=== PATIENT | male | born 1950 | race Caucasian/White ===

== ENCOUNTER → 2016-02-22 | Outpatient (CLI) | payer MEDICARE, OTHER ==
[2015-12-28 16:00] VITALS: BP 155/77
[~2016-02-22] MED LIST: ALBU2.5V5 NEB; AMOX1TAB61 PO; CIPR10DR AS; DIVA500T9 PO; FLEC100T PO; FLUT1DIS3 IH; HYDR-971 PO; HYDR25CA75 PO; METO25TA4 PO; ONDA4TAB7 PO; OXYC-323 PO; PROAIR HFA8.5 GM INH; RIVA10TA PO; TERA10CA3 PO; TRAZ100T12 PO
--- NOTE | 2016-02-22 12:05 | KCIC ---
PROCEDURE CT head without contrast. HISTORY Subdural hematoma follow-up. TECHNIQUE CT of the head was performed without intravenous contrast. Comparison is made to the study of 01/25/2016. One or more of the following individualized dose reduction techniques were utilized for this examination: 1. Automated exposure control; 2. Adjustment of the mA and/or kV according to patient size; 3. Use of iterative reconstruction technique. FINDINGS The right frontal subdural hematoma has almost completely resolved. A standard collection measures 4 millimeters or less in thickness. Right frontotemporal craniotomy changes are noted. Mild hypoattenuation within the periventricular white matter indicates mild chronic small-vessel ischemic white matter change. There are chronic lacunar infarcts bilaterally in the basal ganglia. The ventricles are normal in size and position. There is mucosal thickening in the ethmoid air cells. The temporal bones, orbits and calvarium are otherwise unremarkable. IMPRESSION - The right frontal subdural hematoma has almost completely resolved and now measures 4 millimeters or less in thickness. - Bilateral chronic basal ganglia lacunar infarcts. Electronically signed by: Tripp Ledezma (Feb 22, 2016 12:02:23)
== END | disposition home or self-care (01) ==
LOC: KCIC CT 11:26
PROVIDERS: ATTEND Neurological Surgery
DX: I62.00 Nontraumatic subdural hemorrhage, unspecified (principal); M54.16 Radiculopathy, lumbar region; M79.605 Pain in left leg; M79.604 Pain in right leg
CPT/HCPCS: 70450

== ENCOUNTER → 2018-11-13 | Outpatient (CLI) | payer MEDICARE, OTHER ==
[2015-12-28 16:00] VITALS: BP 155/77
[~2018-11-13] MED LIST changes: +ALBU2.5V8 INH; +DIVA-53 PO; -DIVA500T9 PO; +HYDR-3164 PO; -HYDR-971 PO; -OXYC-323 PO; +OXYC1TAB15 PO; -PROAIR HFA8.5 GM INH; +TRAZ-86 PO; -TRAZ100T12 PO
--- NOTE | 2018-11-13 16:36 | KCIC ---
MRI of the brain without contrast 11/13/2018 Clinical History: Tension headaches. History of subdural hematoma. Technique: Unenhanced T1-weighted sagittal and axial, T2-weighted axial and coronal and FLAIR, gradient echo and diffusion-weighted axial images of the brain were obtained. Findings: Comparison is made to the patient's CT scan of the head dated 02/22/2016. Some of the images are degraded by patient motion. The patient is post right frontal craniotomy. There is generalized parenchymal atrophy. Patchy, confluent and multiple small focal areas of increased signal intensity are seen within the periventricular and subcortical white matter of both cerebral hemispheres on the FLAIR and T2-weighted images consistent with areas of small vessel ischemic disease. A 5 mm old area of lacunar infarction is seen involving the medial left aspect of the ana. No acute parenchymal abnormality is seen. No extra-axial fluid collection is seen. There is no MRI evidence of acute ischemia/infarction. Mild to moderate mucosal thickening is seen throughout the paranasal sinuses. There are small bilateral mastoid effusions, right greater than left. Normal flow voids are seen within the major vascular structures surrounding the brain parenchyma. Impression: No acute parenchymal abnormality is seen. Electronically signed by: Gilbert Shields MD (11/13/2018 4:33 PM) [id number]
== END | disposition home or self-care (01) ==
LOC: KCIC MRI 14:40
PROVIDERS: ATTEND Psychiatry & Neurology Neurology with Special Qualifications in Child Neurology
DX: I62.00 Nontraumatic subdural hemorrhage, unspecified (principal); I63.81 Other cerebral infarction due to occlusion or stenosis of small artery
CPT/HCPCS: 70551

== ENCOUNTER 2020-12-20 10:12 | Emergency (ER) | payer BC, MEDICARE ==
[~2020-12-20] VITALS: Ht 180.3 cm; Wt 75.5 kg
[~2020-12-20 10:12] MED LIST changes: +TRAZ-123 PO; -TRAZ-86 PO
--- NOTE | 2020-12-20 10:52 | ED.ADGEN ---
Past Medical History Past Medical History: A-Fib, COPD, Hypertension, Pneumonia Additional Past Medical Histor: ruptured L ear drum Past Surgical History: Other Additional Past Surgical Histo: HERNIA, ANEURYSM Smoking Status: Current Every Day Smoker Alcohol Use: Occasionally Drug Use: None General Adult HPI: HPI: Patient is a 69 year old 69-year-old male coming in complaining of a bump on the right occiput of his head that he noticed about 1.5 days ago. Patient states he is unsure if he might of bumped his head on anything. Patient also complains of numbness to touch on the back of his head and the top of his head but not on the forehead. Patient states that the numbness has been present for 1.5 days as well. Patient is taking a blood thinner. No other complaints. Review of Systems: Review of Systems: All other systems within normal limits except for as noted in the HPI Allergies: Allergies: Allergies Coded Allergies Type Severity Reaction Last Updated Verified No Known Drug Allergies 12/23/15 No Physical Exam: PE: Constitutional: Well developed, well nourished, no acute distress, non-toxic appearance. [] HENT: Normocephalic, small bump on base of right occiput with superficial abrasion. Bilateral external ears normal, nose normal. [] Eyes: PERRLA, conjunctiva normal, no discharge. [] Neck: No rigidity, supple, no stridor. [] Cardiovascular: Regular rate and rhythm, brisk cap refill [] Lungs & Thorax: Non labored symmetric respirations, no tachypnea or respiratory distress [] Abdomen: Soft, nondistended. Skin: Warm, dry, no erythema, no rash. [] Back: Unremarkable Extremities: No deformities, range of motion grossly intact, no lower extremity edema [] Neurologic: Alert and oriented X 3, no focal deficits noted. [] Psychologic: Affect normal, judgement normal, mood normal. [] Current Patient Data: Labs: Laboratory Tests Test 12/20/20 11:58 12/20/20 12:23 Sodium Level 134 mmol/L (136-145) L Potassium Level 4.0 mmol/L (3.5-5.1) Chloride Level 100 mmol/L (98-107) Carbon Dioxide Level 29 mmol/L (21-32) Anion Gap 5 (6-14) L Blood Urea Nitrogen 11 mg/dL (8-26) Creatinine 1.5 mg/dL (0.7-1.3) H Estimated GFR (Cockcroft-Gault) 46.4 BUN/Creatinine Ratio 7 (6-20) Glucose Level 98 mg/dL (70-99) Calcium Level 8.2 mg/dL (8.5-10.1) L Phosphorus Level 2.8 mg/dL (2.6-4.7) Magnesium Level 2.2 mg/dL (1.8-2.4) Total Bilirubin 0.6 mg/dL (0.2-1.0) Aspartate Amino Transferase (AST) 37 U/L (15-37) Alanine Aminotransferase (ALT) 31 U/L (16-63) Alkaline Phosphatase 71 U/L (46-116) Total Protein 6.9 g/dL (6.4-8.2) Albumin 3.4 g/dL (3.4-5.0) Albumin/Globulin Ratio 1.0 (1.0-1.7) White Blood Count 4.1 x10^3/uL (4.0-11.0) Red Blood Count 2.10 x10^6/uL (4.30-5.70) L Hemoglobin 7.6 g/dL (13.0-17.5) L Hematocrit 23.0 % (39.0-53.0) L Mean Corpuscular Volume 109 fL (79-100) H Mean Corpuscular Hemoglobin 36 pg (25-35) H Mean Corpuscular Hemoglobin Concent 33 g/dL (31-37) Red Cell Distribution Width 15.0 % (11.5-14.5) H Platelet Count 227 x10^3/uL (140-400) Neutrophils (%) (Auto) 48 % (31-73) Lymphocytes (%) (Auto) 31 % (24-48) Monocytes (%) (Auto) 18 % (0-9) H Eosinophils (%) (Auto) 2 % (0-3) Basophils (%) (Auto) 1 % (0-3) Neutrophils # (Auto) 2.0 x10^3/uL (1.8-7.7) Lymphocytes # (Auto) 1.3 x10^3/uL (1.0-4.8) Monocytes # (Auto) 0.7 x10^3/uL (0.0-1.1) Eosinophils # (Auto) 0.1 x10^3/uL (0.0-0.7) Basophils # (Auto) 0.0 x10^3/uL (0.0-0.2) Laboratory Tests 12/20/20 12:23 Laboratory Tests 12/20/20 11:58 Vital Signs: Vital Signs Date Time Temp Pulse Resp B/P (MAP) Pulse Ox O2 Delivery O2 Flow Rate FiO2 12/20/20 13:54 75 23 210/98 (135) 94 Room Air 12/20/20 10:19 97.9 97.9 EKG: EKG: [] Heart Score: C/O Chest Pain: No Risk Factors: Risk Factors: DM, Current or recent (<one month) smoker, HTN, HLP, family history of CAD, obesity. Risk Scores: Score 0 - 3: 2.5% MACE over next 6 weeks - Discharge Home Score 4 - 6: 20.3% MACE over next 6 weeks - Admit for Clinical Observation Score 7 - 10: 72.7% MACE over next 6 weeks - Early Invasive Strategies Radiology/Procedures: Radiology/Procedures: [facility] [address] [place] [address] IMAGING REPORT Signed PATIENT: MISTY CARDOSO ACCOUNT: [id number] : 1950 LOCATION: ER AGE: 69 SEX: M EXAM STATUS: REG ER ORD. PHYSICIAN: ROXANNE ARRIOLA MD REASON: bump on back of head numbness PROCEDURE: CT HEAD WO CONTRAST CT HEAD/BRAIN WO History: Reason: bump on back of head numbness / Spl. Instructions: / History: Comparison: MRI November 13, [address] February 22, 2016 Technique: Noncontrast CT imaging was performed of the head. Exposure: One or more of the following individualized dose reduction techniques were utilized for this examination: 1. Automated exposure control 2. Adjustment of the mA and/or kV according to patient size 3. Use of iterative reconstruction technique. Findings: No intracranial hemorrhage. No mass effect. No hydrocephalus. Mild brain parenchymal volume loss. Mild foci of decreased attenuation within hemispheric white matter, most often due to chronic microvascular ischemia. Left parietal cortical and subcortical encephalomalacia related to prior infarct. Chronic appearing bilateral thalamic and left basal ganglia lacunar infarcts, interval development compared to prior. Chronic right basal ganglia lacunar infarct. Imaged orbits are unremarkable. Imaged paranasal sinuses and mastoid air cells are clear. No acute calvarial fracture. Postop changes right parietal craniotomy. Impression: 1. No acute intracranial abnormality. 2. Chronic appearing left parietal and bilateral thalamic as well as bilateral basal ganglia infarcts. If persistent clinical concern for acute ischemia, MRI can better evaluate. Electronically signed by: Lukasz Ingram DO (12/20/2020 11:13 AM) [facility] DICTATED and SIGNED BY: LUKASZ INGRAM DO DATE: 12/20/20 [id number] [] Course & Med Decision Making: Course & Med Decision Making Pertinent Labs and Imaging studies reviewed. (See chart for details) Work-up unremarkable other than hemoglobin of 7.6. Last hemoglobin in our records is 2016 was normal. Patient denies any melena or hematochezia. Discussed with patient's primary care provider, they do not have a recent hemoglobin either. Discussed admission versus prompt follow-up, patient's primary care provider Dr. Torres will have his office call patient later today to schedule follow-up appointment for tomorrow. Primary care provider requested patient discontinue his Eliquis. [] Benjamin Disclaimer: Benjamin Disclaimer: This electronic medical record was generated, in whole or in part, using a voice recognition dictation system. Departure Departure Impression: Primary Impression: Hematoma of occipital region of scalp Additional Impression: Anemia Disposition: HOME / SELF CARE / HOMELESS Condition: STABLE Referrals: Job ROONEY MD (PCP) ARMIDA TORRES MD Patient Instructions: Paresthesia, [id number] Additional Instructions: Discontinue taking Eliquis and follow-up with Dr. Torres tomorrow Problem Qualifiers ROXANNE ARRIOLA MD Dec 20, 2020 10:52
--- NOTE | 2020-12-20 11:16 | RAD ---
CT HEAD/BRAIN WO History: Reason: bump on back of head numbness / Spl. Instructions: / History: Comparison: MRI November 13, [address] February 22, 2016 Technique: Noncontrast CT imaging was performed of the head. Exposure: One or more of the following individualized dose reduction techniques were utilized for thi s examination: 1. Automated exposure control 2. Adjustment of the mA and/or kV according to patient size 3. Use of iterative reconstruction technique. Findings: No intracranial hemorrhage. No mass effect. No hydrocephalus. Mild brain parenchymal volume loss. Mild foci of decreased attenuation within hemispheric white matte r, most often due to chronic microvascular ischemia. Left parietal cortical and subcortical encephalomalacia related to prior infarct. Chronic appearing b ilateral thalamic and left basal ganglia lacunar infarcts, interval development compared to prior. Ch ronic right basal ganglia lacunar infarct. Imaged orbits are unremarkable. Imaged paranasal sinuses and mastoid air cells are clear. No acute ca lvarial fracture. Postop changes right parietal craniotomy. Impression: 1. No acute intracranial abnormality. 2. Chronic appearing left parietal and bilateral thalamic as well as bilateral basal ganglia infarct s. If persistent clinical concern for acute ischemia, MRI can better evaluate. Electronically signed by: Lukasz Ingram DO (12/20/2020 11:13 AM) [facility]
[2020-12-20 12:22] LABS: CALCIUM 8.2 mg/dL (8.5-10.1); CREATININE 1.5 mg/dL (0.7-1.3); GFR 46.4
[2020-12-20 12:28] LABS: ALBUMIN 3.4 g/dL (3.4-5.0); MAGNESIUM 2.2 mg/dL (1.8-2.4); PHOSPHORUS 2.8 mg/dL (2.6-4.7); TOTAL BILIRUBIN 0.6 mg/dL (0.2-1.0); TOTAL PROTEIN 6.9 g/dL (6.4-8.2)
[2020-12-20 12:42] LABS: BASO % 1 % (0-3); EOS # 0.1 x10^3/uL (0.0-0.7); EOS % 2 % (0-3); HEMOGLOBIN 7.6 g/dL (13.0-17.5); LYMPH # 1.3 x10^3/uL (1.0-4.8); LYMPH % 31 % (24-48); MEAN CORPUSCULAR HEMOGLOBIN 36 pg (25-35); MEAN CORPUSCULAR HGB CONC 33 g/dL (31-37); MEAN CORPUSCULAR VOLUME 109 fL (79-100); MONO # 0.7 x10^3/uL (0.0-1.1); MONO % 18 % (0-9); NEUT % 48 % (31-73); PLATELET COUNT 227 x10^3/uL (140-400); WHITE BLOOD COUNT 4.1 x10^3/uL (4.0-11.0)
[2020-12-20 14:05] VITALS: BP 188/80
== END 2020-12-20 14:42 | disposition home or self-care (01) ==
LOC: ER 10:12
DX: S00.03XA Contusion of scalp, initial encounter (principal); D64.9 Anemia, unspecified; I48.91 Unspecified atrial fibrillation; J44.9 Chronic obstructive pulmonary disease, unspecified; I10 Essential (primary) hypertension; F17.200 Nicotine dependence, unspecified, uncomplicated; W22.8XXA Striking against or struck by other objects, initial encounter; Y93.89 Activity, other specified; Y92.89 Other specified places as the place of occurrence of the external cause; Y99.8 Other external cause status
CPT/HCPCS: 36415; 70450; 80053; 83735; 84100; 85025; 99285-25